=== PATIENT | female | born 1945 | race Caucasian/White ===

== ENCOUNTER → 2020-07-01 | Outpatient (CLI) | payer MEDICARE, OTHER ==
--- NOTE | 2020-07-01 14:10 | RADIOLOGY REPORT (SQ) ---
EXAM DESCRIPTION: MRI LUMBAR SPINE WITHOUT IMAGES COMPLETED DATE/TIME: 07/01/2020 12:38 pm REASON FOR STUDY: M54.5 LOW BACK PAIN M54.5 LOW BACK PAIN COMPARISON: None. TECHNIQUE: Sagittal and Axial imaging includes T1, T2, STIR and gradient echo sequences. Coronal T2/ HASTE imaging. LIMITATIONS: Motion. FINDINGS: VISUALIZED UPPER ABDOMEN: Limited evaluation. No acute or suspicious findings suggested. SEGMENTATION: No transitional anatomy. The lowest well-developed disc space is labeled L5-S1. ALIGNMENT: Moderate sigmoid scoliosis. Grade 1 anterolisthesis L2 relative to L1 and L4 relative to L5. VERTEBRAE: Intact. BONE MARROW: Normal. No marrow replacement or reactive changes. DISC SIGNAL: Desiccation multiple levels. POSTERIOR ELEMENTS: Spondylolysis L5-S1. HARDWARE: None in the spine. CORD AND CONUS: Normal in size and signal intensity. Conus at the appropriate level. SOFT TISSUES: No aortic aneurysm seen. No bulky retroperitoneal adenopathy or mass. No paraspinal mas s or fluid. L1-L2: Mild spinal stenosis due to disc osteophyte complex. Moderate neural foraminal narrowing bila terally. L2-L3: Mild-moderate spinal stenosis due to disc osteophyte complex and facet arthropathy. L3-L4: Mild spinal stenosis due to disc bulge and facet arthropathy. L4-L5: Moderate spinal stenosis and lateral recess stenosis due to disc bulge, malalignment and facet arthropathy. Mild right neural foraminal narrowing. L5-S1: Disc bulge and facet arthropathy. No significant spinal stenosis. Mild left neural foraminal narrowing. LOWER THORACIC: Incompletely imaged. No stenosis seen. SACRUM: Visualized upper sacrum intact. OTHER: No other significant findings. IMPRESSION: Spondylosis, facet arthropathy and malalignment. Spondylolysis L5-S1. Varying degrees of spinal stenosis and neural foraminal stenosis as described above. TECHNICAL DOCUMENTATION: JOB ID: [id number] 2010 [employer]- All Rights Reserved Reading location - IP/workstation name: [email or web address]
== END ==
LOC: RAD 11:47
PROVIDERS: ATTEND Orthopaedic Surgery
DX: M47.817 Spondylosis without myelopathy or radiculopathy, lumbosacral region (principal); M54.5 Low back pain
CPT/HCPCS: 72148